=== PATIENT | male | born 1955 | race Caucasian/White ===

== ENCOUNTER 2022-05-22 13:52 | Emergency (ER) | payer MEDICARE ==
[2022-05-22 14:33] LABS: HEMOGLOBIN 12.5 gm/dl (14.0-17.5); RED BLOOD COUNT 4.61 M/UL (4.20-5.50); WHITE BLOOD COUNT 8.7 K/UL (4.5-11.0)
== END 2022-05-22 17:18 | disposition home or self-care (01) ==
LOC: ER1 13:52
PROVIDERS: Physician Assistant Medical
DX: L08.9 Local infection of the skin and subcutaneous tissue, unspecified (principal); E11.9 Type 2 diabetes mellitus without complications; Z88.1 Allergy status to other antibiotic agents; Z90.5 Acquired absence of kidney
CPT/HCPCS: 73630; 80053; 85025; 85652; 86140; 99283

== ENCOUNTER → 2022-06-05 | Outpatient (CLI) | payer MEDICARE | LOC: KOH-I 06-01 14:30 | DX: S91.301A Unspecified open wound, right foot, initial encounter (principal) | CPT/HCPCS: 93926 ==

== ENCOUNTER → 2022-06-19 | Outpatient (CLI) | payer MEDICARE | LOC: KOH-I 08:09 | DX: M86.9 Osteomyelitis, unspecified (principal); L97.319 Non-pressure chronic ulcer of right ankle with unspecified severity | CPT/HCPCS: 73718 ==